=== PATIENT | female | born 1960 | race Caucasian/White ===

== ENCOUNTER 2019-02-10 10:51 | Day surgery (SDC) | payer MEDICARE ==
[~2019-02-10] VITALS: Ht 170.2 cm; Wt 139.1 kg
[2019-02-10 11:13] LABS: HEMATOCRIT 33.9 % (36.0-48.0); HEMOGLOBIN 10.6 g/dL (12-16); MCHC 31.3 g/dL (31.0-37.0); MCV 83.3 fL (80.0-100.0); MEAN PLATELET VOLUME 9.7 fL (7.4-10.4); RBC 4.07 10x6/uL (4.00-5.40); RDW 14.5 % (11.5-14.5); WBC 3.8 10x3/uL (4.8-10.8)
[2019-02-10] MEDS ORDERED: PROPAFENONE HC150 MG PO (12:50)
[2019-02-10] MEDS ORDERED: RANITIDINE HCL150 M1 PO (12:50)
[2019-02-10 12:58] VITALS: BP 149/79; Ht 170.2 cm; Wt 139.1 kg
--- NOTE | 2019-02-10 15:02 | NUR ---
1355-RECD FROM GI LAB. ALERT. 1405- VOJOSE IN TO REPORT FINDINGS. 1415-FULL LIQUIDS SERVED 1425-IV D/C AND DISCHARGE INSTRUCTIONS REVIEWED. 1440-D/C HOME VIA W/C WITH SPOUSE
--- NOTE | 2019-02-11 15:43 | OP ---
PATIENT NAME: HAMMAD MORENO MEDICAL RECORD: [id number] :60 LOCATION:[facility] ADMISSION DATE: SURGEON: LUIS MANUEL WILSON DO DATE OF OPERATION: 02/10/2019 PROCEDURE: EGD with biopsies. INDICATIONS FOR PROCEDURE: Anemia, heartburn, melena. SCOPE: Olympus video gastroscope. MEDICATIONS: Propofol 150 mg IV per anesthesia. ESTIMATED BLOOD LOSS: Minimal. COMPLICATIONS: None. FINDINGS AND DESCRIPTION OF PROCEDURE: Informed consent was given. The patient was made comfortable with the above medication. After reaching an adequate level of sedation by slow IV push, the patient was placed on her left side. The endoscope was advanced under direct visualization through the mouth to the second portion of the duodenum. The upper, middle, and lower thirds of the esophagus appeared normal. At the GE junction, there was evidence of LA class B reflux-induced esophagitis. Cold forceps biopsies were taken at the GE junction to submit for histopathology and to rule out the presence of Johns's esophagus. The endoscope was advanced beyond the GE junction into the stomach and retroflexed to view the cardia, which appeared normal. The fundus of the stomach also appeared normal. Throughout the body, antrum, and prepyloric regions of the stomach, there was patchy erythema and granularity consistent with gastritis. In the prepyloric region alone, extending up near the incisura, there were scars and very superficial linear and small ulcerations which appear to be on the healing side. Cold forceps biopsies were taken from the antrum and incisura to submit for histopathology and to rule out the presence of H. pylori. The endoscope was advanced beyond the pylorus into the duodenum, which appeared normal down to the second portion. Random cold forceps biopsies were taken to submit for histology. The endoscope was withdrawn from the patient. The patient tolerated the procedure well and there were no complications. IMPRESSION: 1. LA class B reflux-induced esophagitis. 2. Gastritis. PLAN AND RECOMMENDATIONS: 1. Discharge home when recovery when recovery parameters are met. 2. Follow up biopsy specimen results. 3. GERD diet and reflux precautions. 4. Hold Zantac and start omeprazole 40 mg daily times 60 days. After that time, it is okay to resume Zantac. TRANSINT:[id number] Voice Confirmation ID: [id number] DOCUMENT ID: [id number] OPERATIVE REPORT [id number] HAMMAD MORENO NATHAN A DO at 1543 CC: [id number] DICTATION DATE: 02/10/19 1350 FILTERS ASSEMBLER: 02/10/19 1452 [facility] 02/10/19 [facility] [address] [id number]
== END 2019-02-10 14:40 | disposition home or self-care (01) ==
LOC: D.OPS 10:51
PROVIDERS: ATTEND Internal Medicine Gastroenterology
DX: D64.9 Anemia, unspecified (principal); K92.1 Melena; R12 Heartburn; Z01.812 Encounter for preprocedural laboratory examination

== ENCOUNTER 2019-03-03 10:40 | Day surgery (SDC) | payer MEDICARE ==
[~2019-03-03] VITALS: Ht 170.2 cm; Wt 139.1 kg
[~2019-03-03 10:40] MED LIST: PROPAFENONE HC150 MG PO; RANITIDINE HCL150 M1 PO
[2019-03-03 11:13] LABS: HEMATOCRIT 35.7 % (36.0-48.0); HEMOGLOBIN 11.2 g/dL (12-16); MCH 25.6 pg (26.0-34.0); MCHC 31.4 g/dL (31.0-37.0); MCV 81.7 fL (80.0-100.0); MEAN PLATELET VOLUME 10.1 fL (7.4-10.4); RBC 4.37 10x6/uL (4.00-5.40); RDW 15.2 % (11.5-14.5); WBC 4.2 10x3/uL (4.8-10.8)
[2019-03-03 11:17] VITALS: Ht 170.2 cm; Wt 139.1 kg
--- NOTE | 2019-03-03 13:47 | NUR ---
DC INSTRUCTIONS GIVEN TO PT/SPOUSE. STATE UNDERSTANDING. DC'D IV CATH FULLY INTACT.
--- NOTE | 2019-03-03 13:51 | NUR ---
PT LEFT UNIT VIA WC AT 1352
--- NOTE | 2019-03-03 16:35 | OP ---
PATIENT NAME: HAMMAD MORENO MEDICAL RECORD: [id number] :60 LOCATION:[facility] ADMISSION DATE: SURGEON: LUIS MANUEL WILSON DO DATE OF OPERATION: 03/03/2019 PROCEDURE: Colonoscopy with polypectomy. INDICATIONS FOR PROCEDURE: Screening colonoscopy and anemia. SCOPE: Olympus video pediatric colonoscope. MEDICATIONS: Propofol 800 mg IV per Anesthesia. ESTIMATED BLOOD LOSS: Minimal. COMPLICATIONS: None. WITHDRAWAL TIME: 10 minutes. FINDINGS: Informed consent was given. The patient was made comfortable with the above medication. After reaching an adequate level of sedation by slow IV push, the patient was placed on her left side. A digital rectal examination was performed, it was normal. The endoscope was then advanced under direct visualization through the rectum to the cecum, confirmed by the presence of the appendiceal orifice and ileocecal valve. The endoscope was slowly withdrawn and the mucosa was carefully examined. There were a few diverticula seen in the descending and sigmoid colon. There was no evidence of diverticulitis. There were 3 polyps visualized on today's examination. Two of these were located in the sigmoid colon. They were benign appearing and sessile and ranged in size from 4-5 mm in diameter. They were both removed using a hot snare in 1 piece and completely retrieved. In the transverse colon, there was another polyp, which was benign appearing and sessile. It measured approximately 6 mm in diameter. It was removed using a hot snare in 1 piece and completely retrieved. Retroflexion was performed in the rectum with visualization of a normal appearing rectal wall. The endoscope was withdrawn from the patient. The patient tolerated the procedure well and there were no complications. IMPRESSION: 1. Mild diverticulosis of the descending and sigmoid colon. 2. Three polyps as described above, removed using a hot snare. PLAN AND RECOMMENDATIONS: 1. Discharge home when recovery parameters are met. 2. Follow up biopsy specimen results. 3. High fiber diet. 4. Continue current medications. 5. Recall colonoscopy in 3 years. 6. Notify the GI clinic if symptoms fail to stay resolved. TRANSINT:[id number] Voice Confirmation ID: [id number] DOCUMENT ID: [id number] OPERATIVE REPORT [id number] HAMMAD MORENO LUIS MANUEL WILSON DO at 163 CC: [id number] DICTATION DATE: 03/03/19 1312 CELL GENETICIST: 03/03/19 1410 [facility] 03/03/19 [place] [id number] [place] [id number]
== END 2019-03-03 13:52 | disposition home or self-care (01) ==
LOC: D.OPS 10:40
PROVIDERS: Anesthesiology; ATTEND Internal Medicine Gastroenterology
DX: Z12.11 Encounter for screening for malignant neoplasm of colon (principal); K57.30 Diverticulosis of large intestine without perforation or abscess without bleeding; D12.5 Benign neoplasm of sigmoid colon; D12.3 Benign neoplasm of transverse colon; Z01.812 Encounter for preprocedural laboratory examination